=== PATIENT | female | born 1970 | race Caucasian/White ===

== ENCOUNTER 2023-07-09 06:00 | Day surgery (SDC) | payer OTHER ==
[2023-07-09] MEDS ORDERED: EXPAREL 133 MG/10 ML VIAL IJ ONE (06:01)
[2023-07-09] MEDS ORDERED: Reglan 10 MG/2 ML ONE (06:05)
[2023-07-09] MEDS ORDERED: CEFAZOLIN 2 GM-D5W BAG** 2 GM/50 ML ML IV ONE (06:05)
[2023-07-09] MEDS ORDERED: Transderm Scop 1.5MG Patch ONE (06:05)
[2023-07-09] MEDS ORDERED: Decadron 4 MG ONE (06:05)
[2023-07-09] MEDS ORDERED: NEURONTIN ONE (06:05)
[2023-07-09] MEDS ORDERED: Pepcid 20 MG VIAL IV ONE (06:05)
[2023-07-09] MEDS ORDERED: Lactated Ringers 1,000 ML IV ONE ×2 (06:05→09:54)
[2023-07-09] MEDS ORDERED: TYLENOL EXTRA STRENGTH 500 MG ONE (06:05)
[2023-07-09] MEDS ORDERED: celeBREX 100 MG ONE (06:05)
[2023-07-09] MEDS: celeBREX 100 MG PO ONE (06:12)
[2023-07-09] MEDS: Lactated Ringers 1,000 ML IV SCH (06:12)
[2023-07-09] MEDS: Decadron 4 MG PO ONE (06:13)
[2023-07-09] MEDS: TYLENOL EXTRA STRENGTH 500 MG PO ONE (06:13)
[2023-07-09] MEDS: NEURONTIN PO ONE (06:13)
[2023-07-09] MEDS: Transderm Scop 1.5MG Patch TOP PRN (06:14)
[2023-07-09] MEDS: CEFAZOLIN 2 GM-D5W BAG** 2 GM/50 ML ML IV SCH (06:32)
[2023-07-09 06:44] VITALS: RESP 18
[2023-07-09] MEDS ORDERED: Marcaine 0.5%/Epinephrine 10 ML ONE ×2 (06:55→07:00)
[2023-07-09] MEDS ORDERED: Versed 2 MG/2 ML Injection ONE (06:56)
[2023-07-09 06:59] LABS: Hematocrit 38.8 % (35-47); Hemoglobin 12.5 g/dL (12.0-16.0); Mean Cell Volume 87.4 fL (78-100); Mean Corpuscular Hemoglobin 28.2 pg (26-32); Mean Corpuscular Hgb Concent. 32.2 g/dL (32-36); Mean Platelet Volume 9.8 fL (7.5-11.0); Platelet Count 329 x10^3/uL (150-450); Red Blood Count 4.44 x10^6/uL (4.1-5.4); Red Cell Distribution Width 13.1 % (11.5-14.0); White Blood Count 8.7 x10^3/uL (4.0-10.5)
[2023-07-09] MEDS ORDERED: Zofran 4 MG/2 ML VIAL ONE (06:59)
[2023-07-09] MEDS ORDERED: ROCURONIUM BROMIDE IV ONE (06:59)
[2023-07-09] MEDS ORDERED: Decadron 4 MG INJ ONE (06:59)
[2023-07-09] MEDS ORDERED: DIPRIVAN 200 MG/20 ML IV ONE (07:00)
[2023-07-09] MEDS: Pepcid 20 MG VIAL IV ONE (07:07)
[2023-07-09] MEDS: Reglan 10 MG/2 ML IV ONE (07:07)
[2023-07-09 07:11] LABS: ALBUMIN 3.7 g/dL (3.5-5.0); ANION GAP 9.2 MEQ/L (5-15); BILIRUBIN,TOTAL 0.6 mg/dL (0.2-1.3); Calcium 8.8 mg/dL (8.4-10.2); Creatinine 1 0.73 mg/dL (0.52-1.04); EST GLOMERULAR FILTRATION RATE 97.7 ML/MIN; Potassium 3.7 mmol/L (3.5-5.1); Total Protein 6.8 g/dL (6.3-8.2)
[2023-07-09 07:14] LABS: INR 1.01 (0.8-3.0); PTT 26.8 SECONDS (25.1-36.5)
[2023-07-09] MEDS ORDERED: BRIDION 200MG/2ML IV ONE (09:28)
--- NOTE | 2023-07-09 09:58 | XRAY ---
Indication: Left Achilles tendon detachment with debridement and reattachment. Calcaneal exostectomy. Excision os trigonum. Intraoperative fluoroscopy provided for 1 minute 27 seconds. 15 digital spot images submitted for interpretation ultimately demonstrates partial excision posterior calcaneus and excision os trigonum. Correlate with intraoperative findings/report.
--- NOTE | 2023-07-09 11:15 | XRAY ---
One minute and 27 seconds of fluoroscopy was used in surgery for a left Achilles tendon detachment with debridement and reattachment. Calcaneal exostectomy. Excision os trigonum.
[2023-07-09 11:26] VITALS: BP 115/70; PULSE 67; TEMP 97; O2SAT 97
--- NOTE | 2023-07-12 08:29 | OP ---
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 4) Pain left ankle. 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 4) Pain left ankle. PROCEDURE: Excision of os trigonum, Achilles tendon detachment, posterior calcaneal exostectomy and debridement of Achilles tendon with reattachment. SURGEON: Minor Wright DPM. TERRAZZO ROLLER: None. ANESTHESIA: General. HEMOSTASIS: Thigh tourniquet set to 320 mm of Mercury for approximately 70 total tourniquet minutes. QUANTITATIVE BLOOD LOSS: Minimal. MATERIALS: Two 2.9 JuggerKnot OC with BroadBand x2, two - 4.5 Quattro Link with a 4 x 3 tapestry, 4-0 Monocryl, 3-0 Nylon. INJECTABLES: See anesthesia report for details. INDICATIONS FOR PROCEDURE: Deidre is a very pleasant 53-year-old female very well known to my service for some of the worst spurring off of the posterior calcaneal insertion of the Achilles tendon that I have seen. The patient has been dealing with this pain for quite some time and she has failed all conservative options of treatment wishing to proceed with surgical intervention. The patient did notice recently that when she puts her foot in extreme plantar flexion there is a pain at the posterior aspect of her ankle that is reproducible with toggle test and flexion of the hallux in a plantar flexed position with the foot in the plantar flexed position as well. On inspection of the radiographs, there was demonstration of os trigonum at the posterior aspect of the ankle. We decided to address both of these issues simultaneously. The patient understands all risks, benefits and complications of surgical intervention at this time including but not limited to infection, hematoma, seroma, possibility of delayed wound healing, nonwound healing and possible need for surgical intervention at a later date. No guarantees were provided as to the outcome of surgical intervention. Plenty of time was allowed for the patient to ask questions which were answered to her apparent satisfaction. It is at this time we decided to proceed. DESCRIPTION OF PROCEDURE AND FINDINGS: The patient was brought into the postoperative anesthesia care unit prior to the procedure and provided a popliteal and saphenous block. Following this, the patient was brought into the procedure room. She was put to sleep on the cart utilizing general anesthesia and then carefully rotating to the prone position. Following this, the left lower extremity was prepped and draped in the typical sterile fashion. A well-padded thigh tourniquet was applied to the patients left thigh and the tourniquet was set to 320 mm of Mercury. After the foot was prepped and draped in the typical sterile fashion and lowered onto the surgical field, attention was then directed to the posterior aspect of the left ankle where an incision was made midline to the insertion of the Achilles tendon. At this time, a 10 blade was carried down to the level of the peritenon. From this standpoint, this was carried through the tendon and an inverted T-incision was made at the posterior aspect of the Achilles tendon the tendon adequately. From this standpoint, a 31 mm sagittal saw was then utilized to resect a significant amount of the posterior aspect of the calcaneus this gave a significant amount of exposure to the posterior compartment where through careful dissection the os trigonum was identified and utilizing rongeur, pituitary rongeur and blunt dissection these were removed from the site. Following this, the power rasp was utilized to smooth down the sharp edges with the posterior aspect of the calcaneus. Following this, significant amount of debridement was carried out utilizing a 15 blade and utilizing finger palpation to the Achilles tendon to remove any calcifications that remained within the Achilles tendon. Following this, two 2.9 JuggerKnot OC were introduced at the proximal row and these were retrograded out of the posterior aspect of the two bookends of the Achilles tendon and then sutures were cut. Utilizing 4.5 Quattro Links these were anchored into the distal row of the calcaneus, this was holding a significant amount of tension. The split between the Achilles tendon was then coapted utilizing simple running continuous stitch utilizing 2-0 Vicryl. Following this, copious amounts of sterile saline were utilized to flush the surgical site. 4-0 Monocryl was utilized to coapt the skin edges in a simple buried interrupted-type fashion. 3-0 Nylon was utilized in a horizontal mattress-type fashion which was secured with Steri-Strips. From that standpoint, a dressing consisting of Betadine, Adaptic, 4x4, Kerlix, ABD and a well-padded posterior splint flexed to 45 degrees and the plantar orientation. The patient was then reversed from anesthesia and returned to the postoperative anesthesia care unit with vital signs stable and vascular status intact. The patient handled the anesthesia as well as the procedure without significant complication. Postoperative orders as indicated in the patient's discharge chart.
== END 2023-07-09 11:35 | disposition home or self-care (01) ==
LOC: SDC 06:00
PROVIDERS: ATTEND Podiatrist Foot & Ankle Surgery
DX: M76.62 Achilles tendinitis, left leg (principal); M92.62 Juvenile osteochondrosis of tarsus, left ankle; Q68.8 Other specified congenital musculoskeletal deformities; M25.572 Pain in left ankle and joints of left foot
CPT/HCPCS: 27654; 28120; 36415; 73610; 76000; 76937; 80053; 85027; 85610; 85730; C1713; C1763; J0690; J1100; J2250; J2405; J2704; A9270-GY